=== PATIENT | male | born 1995 | race Hispanic/Latino ===

== ENCOUNTER 2018-08-10 22:50 | Emergency (ER) | payer OTHER ==
[2018-08-10] MEDS: IBUPROFEN 600 MG TAB PO (23:09)
== END 2018-08-10 23:46 | disposition home or self-care (01) ==
LOC: M ED 22:50
DX: S93.401A Sprain of unspecified ligament of right ankle, initial encounter (principal); X50.9XXA Other and unspecified overexertion or strenuous movements or postures, initial encounter; Y92.018 Other place in single-family (private) house as the place of occurrence of the external cause
CPT/HCPCS: 73610

== ENCOUNTER → 2018-09-15 | Outpatient (REF) | payer OTHER ==
[2018-09-15 13:00] LABS: % NORMAL FORMS 9 % (>=4); IMMOTILITY 45 %; NON PROGRESSIVE MOTILITY (c) 16 %; PROGRESSIVE MOTILITY (a) 39 % (>=32); SEMEN APPEARANCE OPAQUE (OPAQUE); SEMEN VISCOSITY LIQUID (LIQUID); SPERM ABNORMAL FORMS WBC'S NOTED; SPERM CONCENTRATION 31.9 M/ml (>=15.0); TOTAL MOTILITY 55 % (>=40); WBC CONCENTRATION >1 M/ml (<=1 M/ml)
[2018-09-15 13:01] LABS: SPERM# 95.8 M/Ejac (>=39); TOTAL FUNCTIONAL 7.7 M/Ejac.
== END ==
LOC: M LAB REF 12:46
DX: Z31.41 Encounter for fertility testing (principal)